=== PATIENT | male | born 2000 | race Asian ===

== ENCOUNTER → 2019-05-19 05:40 | Day surgery (SDC) | payer OTHER ==
[~2019-05-19 05:40] MED LIST: Atracurium* 10 MG/ML 10 ML VIAL ONE; Buffered Lidocaine 1% SYRIN* 1 ML/SYRINGE INTRADERM ONE; Bupivacaine 0.5% W/EPI SDV* 10 ML VIAL INJ ONE; Dexamethasone IV* 4 MG/ML 1 ML (4 MG) IV SLOW PU ONE; Dexamethasone IV* 4 MG/ML 1 ML (4 MG) ONE; DiMENhydriNATE IV* 50 MG/ML VIAL IV PUSH PRN; EPINEPHRINE 1 MG/ML 1 ML VIAL ONE; Famotidine IV* 10 MG/ML 2 ML (20 mg) IV ONE; Famotidine IV* 10 MG/ML 2 ML (20 mg) ONE; Glycopyrrolate IV* 0.2 MG/ML 1 ML VIAL ONE; HYDROmorphone INJ1* 1 MG/ML SYRINGE IV PRN; Ketorolac INJ* 30 MG/ML 1 ML VIAL ONE; Midazolam* 1 MG/ML 5 ML VIAL (5 MG) ONE; Naloxone* 0.4 MG/ML 1 ML VIAL IV PRN; Ondansetron INJ* 2 MG/ML VIAL IV PRN; Ondansetron INJ* 2 MG/ML VIAL ONE; Propofol* 10 MG/ML 20 ML BTL ONE; Scopolamine 1.5 mg* PATCH TRANSDERM PRN; ceFAZolin 2 GM PREMIX in ORs 2 GM/50 ML BAG ONE; fentaNYL* 50 MCG/ML 2 ML VIAL (100 MCG VIAL) IV PRN; fentaNYL* 50 MCG/ML 2 ML VIAL (100 MCG VIAL) ONE; fentaNYL* 50 MCG/ML 5 ML VIAL (250 MCG VIAL) ONE; oxyCODONE/Acetamin 5/325 MG* TAB PO PRN
[2019-05-19] MEDS: Lactated Ringers 1000 ML Bag* 1,000 ML IV SCH ×2 (06:40→11:55)
[2019-05-19 12:16] VITALS: BP 119/64
--- NOTE | 2019-05-21 05:05 | OP ---
DATE OF OPERATION: 05/19/19 - [facility] DATE OF : 89 SURGEON: Dr. Geremias Melton. FINANCIAL AIDS OFFICER: RACHAEL Lee. A physician clinical nursing assistant was required for the length of the procedure for assistance with patient positioning, instrumentation , knee manipulation, and closure. ANESTHESIOLOGIST: Dr. Hayden. ANESTHESIA: General anesthesia, local anesthesia using 20 cc of Marcaine 0.25% with epinephrine. PRE-OP DIAGNOSES: 1. Left knee anterior cruciate ligament tear. 2. Left knee lateral meniscus tear. POST-OP DIAGNOSES: 1. Left knee anterior cruciate ligament tear. 2. Left knee lateral meniscus tear. OPERATIVE PROCEDURE: 1. Left knee arthroscopic anterior cruciate ligament reconstruction with bone- patella-bone autograft. 2. Left knee arthroscopic lateral meniscal repair using all-inside fixation. 3. Left knee arthroscopic partial lateral meniscectomy. ANTIBIOTICS: Ancef 2 g IV. IV FLUIDS: See Anesthesia note. HBWO-RW-BTOJ TIME: 177 minutes. TOURNIQUET TIME: 125 minutes at a tourniquet pressure of 300 mm left proximal thigh. SPECIMEN: None. IMPLANTS: [employer] interference screws x2. The first screw in the femur was 9 mm x 20 mm, the screw in the tibia was 11 mm x 30 mm. 5 cc of cancellous allograft bone chips were utilized to backfill the defect in the tibial tubercle. FAST-FIX 360 device Adame and Nephew used for lateral meniscal repair. COMPLICATIONS: None. ESTIMATED BLOOD LOSS: Minimal. INDICATIONS FOR PROCEDURE: The patient is a 19-year-old man, nain at [facility] [employer] [facility], who injured his left knee in December 2018 playing basketball. MRI in February showed the ACL tear as well as several lateral meniscal tears. The patient's exam and history were consistent with the above-mentioned diagnoses. The patient delayed surgery. I sent him to physical therapy preoperatively for prehabilitation. We discussed nonoperative and operative treatments. We discussed different graft sources for the ACL reconstruction. I discussed the lateral meniscal tears. The patient had a small partial-thickness central tear in the body of the lateral meniscus. That was to be treated with a minimal partial lateral meniscectomy. The patient more significantly had a significant tear near the posterior root of the lateral meniscus. I studied the MRI very closely multiple times as well as spoke to the top radiologist, musculoskeletal, about his read on this tear. Looked to be a high-grade partial-thickness tear, not exactly at but adjacent to the posterior root of the lateral meniscus. I discussed with the patient treating this as appropriate as determined intraoperatively. Possibilities for treatment included a partial lateral meniscectomy or a lateral meniscal repair using all-inside fixation. Lateral meniscal repair could consist of using a FAST-FIX device or could even consist just of a suture use without a device. I was also prepared to do a formal posterior root repair with tunnels. All these would be determined by the direction of the tear, location of the tear with regard to the root, the stability of the tear, and the length of the tear. The patient understood and that this would also affect his postoperative rehabilitation timeline. Discussed risks and potential complications of surgery. DESCRIPTION OF PROCEDURE: In preoperative holding, the patient signed a written consent. Operative extremity was marked in preoperative holding. The patient was taken back to the operating room and placed supine on operating room table. Sedated and intubated. A post was placed along the table. [place] bump was placed under the left hemipelvis. Tourniquet was placed about the left proximal thigh. Left lower extremity was prepped and draped. Surgical time -out performed. Esmarch applied and tourniquet elevated. Made left knee anterolateral arthroscopy portal using standard technique. Performed diagnostic arthroscopy. Patello-femoral compartment showed some protuberant synovial tissue but no articular cartilage injury. I moved down to the lateral compartment. No articular cartilage injury. There was a small very low- grade partial-thickness tear, radial in the body of the lateral meniscus. There was also a tear about the posterior root. Closer inspection of the posterior root tear was performed, viewing from a variety of angles. The root tear was not actually at the true root. It was approximately a centimeter from the root and just as the meniscus curves around. This appeared to be a partial-thickness tear that had already undergone some degree of healing. It was not full-thickness radial. The tear was at somewhat of an angle. The tear was really in the coronal plane of the knee. I made a central portal under direct visualization that I was able to instrument well through. I used a probe and I inspected the tear more. I said central portal but this was really more a slightly high, slightly central anteromedial portal. I decided that the tear was too far from the posterior root, which made it not a good candidate for a formal root repair with tunnels. Likewise, because it was only a partial-thickness tear in process of healing at least to some degree , I did not think the tunneled root repair made sense. Given the trajectory of the tear, I thought that with the capsule directly behind the more lateral aspect of the meniscus, I could perform an all-inside repair with FAST-FIX fixation. First attempt was to place a horizontal mattress stitch with each limb of suture going through the more medial fragment into the more lateral fragment. However, the tissue quality in the more medial fragment was not good enough, and so as I was tightening that, that tore through. There was no suture to debride. I therefore placed a new stitch, a simple stitch with only 1 arm placed into the more lateral component of meniscus and then the second arm placed through the medial and the lateral piece. I tightened the stitch and I brought together nicely the medial and lateral fragments. This was essentially a simple stitch placed with a FAST-FIX device. The benefit of using FAST-FIX versus a simple suture was the lack of knot that might be prominent and bother the patient. I should state that prior to doing the lateral meniscal repair, I did a partial lateral meniscectomy on a different part of the meniscus with a small tear in the body of the meniscus. I used a meniscal biter and an arthroscopic shaver to debride that tear back to stability. This involved removing only a minimum of meniscus. Done with the work in the lateral compartment, I moved to the medial compartment. No articular cartilage damage. No meniscal tear visible. I probed the meniscus to confirm. I moved to the intercondylar notch. Confirmed by probing the tear of the ACL proximally. Removed fluids and instruments. Applied the [facility] knee positioner to the table. Placed the knee in it. I next harvested the lyra-ikzgkzu-arhr autograft. Standard technique. Skin longitudinal incision. Dissected down to paratenon. Split that longitudinally and retracted it. Used a double knife blade to remove 10 mm of the central aspect of the patellar tendon. I should note that the patient had a very wide patellar tendon, 40 mm wide prior to my removal of the central strip. I took bone blocks. A bone block in the patellar side was 25 mm and bone block on tibial side removed was 32 mm as per my intention. I removed graft and placed it on a back table. We closed the defect in the patellar tendon with buried [id number]-[id number] stitches using Vicryl 0 and Ethibond 0 suture. Contoured the graft on the back table. Placed 2 sutures proximally and 1 distally through the tendon and bone blocks. Placed the graft under tension on the back table. Returned to the knee. Debrided ACL remnant stump or much of it. Performed a notchplasty with an arthroscopic bur. I used several landmarks to place a Beath pin and then drilled the femoral tunnel size 10 mm in diameter. I used the clock face, 1:30 o'clock as well as the proximal aspect of the posterior articular cartilage as guideposts. The tunnel turned out to be excellent with only a 1-mm posterior wall. I drilled through an accessory anteromedial portal established under direct visualization prior to my notchplasty. This was done with the knee hyperflexed. I then returned the knee to 90 degrees of flexion. Placed a tibial guide pin set to 60 degrees. Placed a Beath pin and then drilled a 10-mm tunnel. I removed bony detritus in a special reservoir from Arth[employer] and I used these shavings later in the case to fill in the patellar bony defect as well as part of the tibial tubercle defect. I placed a passing suture through the bone tunnels and used that to pass my graft. Placed a Nitinol wire, tapped and placed my interference screw 9 x 20 mm in the femur. I then fully extended the knee, pulled much tension on the graft , and placed a Nitinol wire, tapped 10 mm and placed a 11 x 30 mm screw. Confirmed nice tightness of the ACL with Whitney's and anterior drawer. There was no laxity whatsoever with Whitney's. There was a tiny bit of laxity with anterior drawer as you see with some patients. I entered the knee with the scope, probed the ACL and it was taut and confirmed excellent position of tunnels and graft in all positions of knee flexion. I looked again in the lateral compartment and it showed excellent lateral meniscal repair with meniscal tissues well apposed. Closure of the arthroscopy portals within the big longitudinal incision performed with [id number] stitches using 0 Vicryl suture. I then filled in the bone block defects with bone shavings from [employer] reservoir as well as 5 cc of cancellous bone chips. I then closed paratenon with a running stitch using Vicryl suture. I closed subcutaneous tissues with buried simple stitches using 2-0 Vicryl suture. Closure of skin incisions with nylon suture, running stitch on the long incision, [id number] and 12 stitches on the shorter incisions. Some local anesthetic was injected about the skin incisions. Xeroform, 4x4s, ABDs, sterile Webril, Theron bandage from foot to proximal groin, cooling unit, knee brace. The patient was awakened, extubated, and transferred to the PACU. DISPOSITION: The patient was to start physical therapy immediately and have that scheduled on postoperative day 1. Take Percocet as needed for pain control , he will take aspirin for 2 weeks for DVT prophylaxis and Keflex for a short course for infection prophylaxis. He is to be toe-touch weightbearing left lower extremity. His range of motion will be limited 0 to 60 degrees for 2 weeks and then from weeks 3 to 6, he will be limited to 0 to 90 degrees of flexion. I will see him 10 to 14 days postoperatively in clinic. [id number]/[facility] #: [id number] [facility]OSPITALDonald
== END | disposition home or self-care (01) ==
LOC: OR 05:40
PROVIDERS: ATTEND Orthopaedic Surgery
DX: S83.512A Sprain of anterior cruciate ligament of left knee, initial encounter (principal); S83.282A Other tear of lateral meniscus, current injury, left knee, initial encounter; X50.0XXA Overexertion from strenuous movement or load, initial encounter; Y93.67 Activity, basketball; Y92.310 Basketball court as the place of occurrence of the external cause
CPT/HCPCS: C1713; J0690; J1100; J1885; J2250; J2405; J2704; J3010